=== PATIENT | male | born 2000 | race Caucasian/White ===

== ENCOUNTER 2023-02-06 21:43 | Emergency (ER) | payer OTHER, SELFPAY ==
[2023-02-06 21:44] VITALS: BP 135/81; PULSE 100; RESP 18; TEMP 35.6; BMI 24.3
[2023-02-06] MEDS: Ondansetron ODT 4 MG Tablet PO (22:36)
[2023-02-06 22:54] VITALS: BP 114/67; PULSE 77; RESP 12; O2SAT 99
--- NOTE | 2023-02-07 00:19 | EX.ED.DYSGE1 ---
HPI History of Present Illness Chief Complaint: Substance Abuse Informant: patient Onset/Context/Timing Onset: Today Context: Gradual Onset Timing: Continuous Worsened by: Nothing Relieved by: Nothing Narrative Narrative: Patient presents with nausea and vomiting that began tonight. Patient states he ate a CBD gummy that had 250 mg of cannabinoids in it. Patient states that he normally only uses a 50 mg gummy. Patient states he had 1 episode of vomiting tonight. Patient denies any hematemesis or coffee-ground emesis. Patient denies any diarrhea, melena, or hematochezia. Patient denies any abdominal pain. Patient denies any fevers or chills. PFSH PFS Medical History No acute medical problems Home Medications NK 02/06/23 [History Last Taken Unknown] Allergy/AdvReac Type Severity Reaction Status Date / Time No Known Allergies Allergy Verified 02/06/23 21:50 Surgical History no surgical history no surgical history Social History Smoking Status: Never smoker ROS ROS ED Constitutional Constitutional ED: Denies chills or fever(s) Eyes Eyes: Denies blurry vision or change in vision ENT ENT ED: Denies rhinorrhea or sore throat Cardiovascular Cardiovascular: Denies chest pain or palpitations Respiratory/Chest Respiratory/Chest: Denies cough or dyspnea Gastrointestinal Gastrointestinal: Reports nausea and vomiting Genitourinary Genitourinary ED: Denies dysuria or hematuria Musculoskeletal Musculoskeletal: Denies back pain or neck pain Integumentary Denies abscess or rash Neurologic Neurologic: Denies headache(s) or weakness Allergic/Immunologic Allergic/Immunologic ED: Denies mouth swelling or urticaria EXAM Physical Exam Const Vital Signs: 02/06/23 21:44 02/06/23 21:44 02/06/23 22:54 Temperature 96.0 F L 96.0 F L Temperature Source Temporal Temporal Pulse Rate 100 100 77 Respiratory Rate 18 18 12 Blood Pressure 135/81 H 135/81 H 114/67 Blood Pressure Mean 99 99 82 Pulse Ox 99 Oxygen Delivery Method Room Air Positive well nourished and well developed General Appearance ED: well developed HEENT Reports moist mucous membranes Neck supple and no JVD Resp normal respiratory effort and clear to auscultation bilaterally Cardio regular rate, regular rhythm and no murmurs GI normal to inspection, nondistended, normoactive bowel sounds and non-tender Palpation: soft Extremity normal to inspection General Extremety ED: Negative for edema or tenderness General Extremity: Negative for edema Neuro oriented x3, CN's II-XII intact bilaterally and no sensory deficits noted Sensorium / Orientation: alert Motor Exam: strength 5/5 throughout Psych mental status grossly normal Skin no rashes or lesions noted [facility] Treatment and Re-Evaluation :: Patient was given a dose of Zofran here. Patient is feeling better on reevaluation. Patient was instructed to start with a liquid diet and advance as tolerated. Patient was instructed to stop using the CBD Gummies. Patient was instructed to follow-up with his primary care physician in 5 to 7 days. Patient understood and was agreeable with the plan. All questions were answered. Discharge Plan Triage Chief Complaint: Substance Abuse ED Provider: Mathieu Doyle Dx/Rx/DC Orders Clinical Impression: Nausea and vomiting, Use of cannabinoid edibles Instructions: ED Vomiting (Adult) Prescriptions: No Action NK Primary Care Provider: Care Physician,No Primary Referrals: Donna Pedroza [Non-Staff] - 5-7 Days Care Physician,No Primary [Primary Care Provider] - Disposition Disposition: Home, Self Care
== END 2023-02-07 00:53 | disposition home or self-care (01) ==
PROVIDERS: Emergency Provider Emergency Medicine; Visit Provider Emergency Medicine
DX: R11.2 Nausea with vomiting, unspecified (principal)
CPT/HCPCS: 99284